=== PATIENT | male | born 1945 | race Caucasian/White ===

== ENCOUNTER 2021-08-27 23:34 | Emergency (ER) | payer MEDICARE ==
[2021-08-28 00:02] LABS: BASOPHIL 0.5 % (0-2); EOSINOPHIL 0.9 % (0-7); HCT 48.5 % (42.0-52.0); HGB 16.2 g/dl (13.2-18.0); LYMPHOCYTE 9.3 % (15-48); MCH 30.8 pg (25.0-31.0); MCHC 33.4 g/dL (32.0-36.0); MCV 92.2 fL (78.0-100.0); MONOCYTE 12.2 % (0-12); MPV 9.3 fL (6.0-9.5); NEUTROPHIL 76.6 % (41-80); NRBC 0; PLT 182 K/uL (150-400); RBC 5.26 M/uL (4.70-6.00); RDW 13.2 % (11.5-14.0); WBC 5.7 K/uL (4.0-10.5)
[2021-08-28 00:12] LABS: INR 2.43 (0.9-1.2); PROTHROMBIN TIME 25.5 SECONDS (11.8-13.4); PTT 38.7 SECONDS (24.4-34.7)
[2021-08-28 00:22] LABS: ALBUMIN 4.1 g/dL (3.4-5.0); BILIRUBIN - TOTAL 0.8 mg/dL (0.2-1.0); BUN/CREAT RATIO (CALC) 13.4 RATIO; CREATININE 0.82 mg/dL (0.67-1.17); GLOBULIN (CALCULATION) 3.8 g/dL; POTASSIUM 3.7 mmol/L (3.5-5.1); TOTAL PROTEIN 7.9 g/dL (6.4-8.2)
[2021-08-28 04:25] LABS: CORONAVIRUS 2019 SARS-COV-2 NEGATIVE (NEGATIVE); INFLUENZA A NAA NEGATIVE (NEGATIVE)
[2021-08-28] MEDS ORDERED: AZITHROMYCIN250 MG PO (04:25)
[2021-08-28] MEDS ORDERED: VENTOLIN HFA IN18 GM INH (04:25)
[2021-08-28] MEDS ORDERED: PREDNISONE 20MG20 MG PO (04:25)
== END 2021-08-28 05:25 | disposition home or self-care (01) ==
LOC: FER 23:34
PROVIDERS: Internal Medicine
DX: R07.89 Other chest pain (principal); B34.9 Viral infection, unspecified; E87.6 Hypokalemia; R01.1 Cardiac murmur, unspecified; I10 Essential (primary) hypertension; E11.9 Type 2 diabetes mellitus without complications; Z20.822 Contact with and (suspected) exposure to COVID-19; Z79.84 Long term (current) use of oral hypoglycemic drugs; Z88.8 Allergy status to other drugs, medicaments and biological substances
CPT/HCPCS: 36415; 36600; 71045; 80053; 82803; 83880; 84484; 85025; 85610; 85730; 93005; 94640; 94664; J1100; U0002

== ENCOUNTER 2021-10-19 22:50 | Emergency (ER) | payer MEDICARE ==
[~2021-10-19 22:50] MED LIST: AZITHROMYCIN250 MG PO; PREDNISONE 20MG20 MG PO; VENTOLIN HFA IN18 GM INH
[2021-10-19 23:21] LABS: BASOPHIL 0.6 % (0-2); EOSINOPHIL 1.7 % (0-7); HCT 45.5 % (42.0-52.0); HGB 15.4 g/dl (13.2-18.0); LYMPHOCYTE 14.9 % (15-48); MCH 30.7 pg (25.0-31.0); MCHC 33.8 g/dL (32.0-36.0); MCV 90.6 fL (78.0-100.0); MONOCYTE 11.3 % (0-12); MPV 9.1 fL (6.0-9.5); NEUTROPHIL 71.2 % (41-80); NRBC 0; PLT 185 K/uL (150-400); RBC 5.02 M/uL (4.70-6.00); RDW 13.4 % (11.5-14.0); WBC 6.4 K/uL (4.0-10.5)
[2021-10-19 23:31] LABS: INR 2.22 (0.9-1.2); PROTHROMBIN TIME 23.8 SECONDS (11.9-13.9); PTT 37.1 SECONDS (24.9-34.6)
[2021-10-20 00:18] LABS: INFLUENZA A NAA NEGATIVE (NEGATIVE)
[2021-10-20 00:37] LABS: CORONAVIRUS 2019 SARS-COV-2 POSITIVE (NEGATIVE)
[2021-10-20 01:27] LABS: ALBUMIN 3.5 g/dL (3.4-5.0); BILIRUBIN - TOTAL 0.7 mg/dL (0.2-1.0); BUN/CREAT RATIO (CALC) 20.3 RATIO; CREATININE 0.69 mg/dL (0.67-1.17); GLOBULIN (CALCULATION) 3.1 g/dL; POTASSIUM 3.6 mmol/L (3.5-5.1); TOTAL PROTEIN 6.6 g/dL (6.4-8.2)
== END 2021-10-20 03:23 | disposition other institution (70) ==
LOC: FER 22:50
PROVIDERS: Emergency Medicine
DX: I25.110 Atherosclerotic heart disease of native coronary artery with unstable angina pectoris (principal); U07.1 COVID-19; I10 Essential (primary) hypertension; Z88.8 Allergy status to other drugs, medicaments and biological substances; Z95.1 Presence of aortocoronary bypass graft
CPT/HCPCS: 36415; 71045; 71275; 80053; 84484; 85025; 85610; 85730; 93005; J1644; J2270; J2405; Q9967; U0002